=== PATIENT | male | born 1970 | race Hispanic/Latino ===

== ENCOUNTER 2017-08-04 11:32 | Emergency (ER) | payer MEDICAID | END 2017-08-04 12:57 | disposition home or self-care (01) | LOC: EDH 11:32 | DX: S43.402A Unspecified sprain of left shoulder joint, initial encounter (principal); I10 Essential (primary) hypertension; E78.00 Pure hypercholesterolemia, unspecified; Z88.6 Allergy status to analgesic agent; Z79.899 Other long term (current) drug therapy; X58.XXXA Exposure to other specified factors, initial encounter; Y93.89 Activity, other specified; Y92.89 Other specified places as the place of occurrence of the external cause; Y99.8 Other external cause status | CPT/HCPCS: 73030; 93005 ==

== ENCOUNTER 2017-11-08 15:36 | Emergency (ER) | payer MEDICAID | END 2017-11-08 16:05 | disposition home or self-care (01) | LOC: EDH 15:36 | DX: R22.1 Localized swelling, mass and lump, neck (principal); E78.00 Pure hypercholesterolemia, unspecified; I10 Essential (primary) hypertension; Z88.6 Allergy status to analgesic agent | CPT/HCPCS: 99281 ==